=== PATIENT | female | born 1965 | race Caucasian/White ===

== ENCOUNTER 2022-03-06 21:43 | Emergency (ER) | payer MEDICAID ==
[~2022-03-06] VITALS: Ht 160 cm; Wt 72.6 kg
[2022-03-06 21:48] VITALS: BP_SYST 138
--- NOTE | 2022-03-06 22:00 | NUR ---
PT HERE ACCOMPANIED HY HER C/O DYSURIA SINCE 1900. PT STATED THAT SHE HAS BLOOD IN HERE URINE WELL. STATES LOWER ABD PRESSURE EVERYTIME SHE URUNATE, +URINARY FREQUENCY, DENIES N/V/D, DENIES FEVER. PMh:DM,HTN,HYPERLIPIDEMIA PT AAOX4, NO SOB NOTED AND NAD, PENDING MD WALTERS.
--- NOTE | 2022-03-06 22:13 | NUR ---
PT ASSISTED TO SHREYAS, REPORT GIVEN TO JUAN JESSICA
[2022-03-06 22:56] LABS: BILIRUBIN,URINE NEGATIVE (NEGATIVE); BLOOD, URINE 3+ (NEGATIVE); CLARITY/URINE CLEAR (CLEAR); COLOR,URINE ORANGE (YELLOW); GLUCOSE,URINE NEGATIVE (NEGATIVE); KETONES,URINE NEGATIVE (NEGATIVE); LEUKOCYTE ESTERASE ,URINE 2+ (NEGATIVE); NITRITE, URINE POSITIVE (NEGATIVE); PH,URINE 7.5 (5.0-8.0); PROTEIN URINE 2+ (NEGATIVE)
[2022-03-06 23:33] LABS: BACTERIA,URINE MODERATE /HPF (None Seen); RBC,URINE 20-50 /HPF (0-3)
[2022-03-06 23:34] LABS: MUCUS,URINE 1+ /LPF (None Seen)
[2022-03-07] MEDS ORDERED: PHEN-727 PO (01:06)
[2022-03-07] MEDS ORDERED: CIPR500T5 PO (01:06)
[2022-03-07] MEDS ORDERED: PHENAZOPYRIDINE HCL 100 MG TABLET ONE (01:12)
[2022-03-07] MEDS ORDERED: CIPROFLOXACIN HCL 500 MG TABLET ONE (01:12)
--- NOTE | 2022-03-07 01:13 | NUR ---
Patient given written and verbal discharge instructions and verbalizes understanding. ER MD discussed with patient the results and treatment provided. Patient in stable condition. ID arm band removed. IV catheter removed intact and dressing applied, no active bleeding. Rx of PYRIDIUM, CIPRO given. Patient educated on pain management and to follow up with PMD. Pain Scale . Opportunity for questions provided and answered. Medication side effect fact sheet provided.
[2022-03-07] MEDS ORDERED: CIPROFLOXACIN HCL 500 MG TABLET PO ONE (01:15)
[2022-03-07] MEDS ORDERED: PHENAZOPYRIDINE HCL 100 MG TABLET PO ONE (01:15)
== END 2022-03-07 01:13 | disposition home or self-care (01) ==
LOC: SED 21:43
DX: N39.0 Urinary tract infection, site not specified (principal); R35.0 Frequency of micturition; R39.15 Urgency of urination; R30.0 Dysuria; Z79.899 Other long term (current) drug therapy
CPT/HCPCS: 81000; 87086; 99283

== ENCOUNTER 2023-06-07 17:55 | Emergency (ER) | payer MEDICAID ==
[~2023-06-07] VITALS: Ht 160 cm; Wt 66.2 kg
[~2023-06-07 17:55] MED LIST: CIPR500T5 PO; PHEN-727 PO
[2023-06-07 18:06] VITALS: BP_SYST 152; PULSE 95; RESP 19; TEMP 97; O2SAT 95
[2023-06-07] MEDS ORDERED: predniSONE 20 MG TABLET PO ONE (18:30)
[2023-06-07] MEDS ORDERED: ALBUTEROL SULFATE 0.083% 2.5 MG/3 ML VIAL.NEB INH ONE (18:30)
[2023-06-07 18:57] LABS: BILIRUBIN,URINE NEGATIVE (NEGATIVE); BLOOD, URINE NEGATIVE (NEGATIVE); CLARITY/URINE CLEAR (CLEAR); COLOR,URINE YELLOW (YELLOW); GLUCOSE,URINE NEGATIVE (NEGATIVE); KETONES,URINE NEGATIVE (NEGATIVE); LEUKOCYTE ESTERASE ,URINE TRACE (NEGATIVE); NITRITE, URINE NEGATIVE (NEGATIVE); PROTEIN URINE NEGATIVE (NEGATIVE); UROBILINOGEN,URINE 0.2 (0.2-1.0)
[2023-06-07 19:04] LABS: BACTERIA,URINE RARE /HPF (None Seen); MUCUS,URINE None Seen /LPF (None Seen); RBC,URINE NONE SEEN /HPF (0-3)
[2023-06-07] MEDS ORDERED: DOXY100C PO (19:28)
[2023-06-07] MEDS ORDERED: PRED20TA PO (19:28)
[2023-06-07] MEDS ORDERED: FLUC150T PO (19:28)
[2023-06-07] MEDS ORDERED: ALBMDI INH (19:28)
[2023-06-07 20:02] LABS: BASOPHILS # (AUTO) 0.1 K/uL (0.0-0.2); BASOPHILS % (AUTO) 0.5 % (0.0-2.0); EOSINOPHILS # (AUTO) 0.5 K/uL (0.0-0.4); EOSINOPHILS % (AUTO) 4.8 % (0.0-4.0); HEMATOCRIT 40.3 % (36-48); HEMOGLOBIN 13.6 g/dL (12.0-16.0); LYMPHOCYTES # (AUTO) 3.2 K/uL (1.0-5.5); MEAN CORPUSCULAR HEMOGLOBIN 30 pg (27-31); MEAN CORPUSCULAR HGB CONC 34 % (32-36); MEAN CORPUSCULAR VOLUME 89 fL (79.0-98.0); MONOCYTES # (AUTO) 0.6 K/uL (0.0-1.0); NEUTROPHILS % (AUTO) 61.7 % (40.0-70.0); PLATELET COUNT (AUTO) 413 K/uL (130-430); RED BLOOD CELL COUNT(AUTO) 4.56 MIL/uL (4.2-6.2); WHITE BLOOD COUNT (AUTO) 11.4 K/uL (4.8-10.8)
[2023-06-07 20:11] LABS: CALCIUM 9.3 mg/dL (8.4-11.0); CREATININE 0.85 mg/dL (0.55-1.30)
[2023-06-07 20:49] VITALS: BP_SYST 152; PULSE 95; RESP 19; TEMP 97; O2SAT 96
== END 2023-06-07 20:49 | disposition home or self-care (01) ==
LOC: SED 17:55
DX: R05.9 Cough, unspecified (principal); B37.31 Acute candidiasis of vulva and vagina; R06.2 Wheezing; Z79.899 Other long term (current) drug therapy
CPT/HCPCS: 99284; 71046; 80048; 81001; 85025; 36415; 94640; 81000; 81015; J7512

== ENCOUNTER 2023-07-07 21:23 | Emergency (ER) | payer MEDICAID ==
[~2023-07-07] VITALS: Ht 160 cm; Wt 66.2 kg
[~2023-07-07 21:23] MED LIST changes: +ALBMDI INH; +DOXY100C PO; +FLUC150T PO; +PRED20TA PO
[2023-07-07 21:36] VITALS: BP_SYST 141; PULSE 90; RESP 17; TEMP 97.8; O2SAT 97
[2023-07-07 22:14] LABS: COVID19 ANTIGEN SOFIA FIA NEGATIVE (NEGATIVE)
[2023-07-07 22:16] LABS: INFLUENZA TYPE A Negative (NEGATIVE); INFLUENZA TYPE B NEGATIVE (NEGATIVE)
[2023-07-07] MEDS ORDERED: ALBMDI INH (23:02)
[2023-07-07] MEDS ORDERED: PRED20TA PO (23:02)
[2023-07-07] MEDS ORDERED: AZIT-93 PO (23:02)
== END 2023-07-07 23:29 | disposition home or self-care (01) ==
LOC: SED 21:23
DX: J20.9 Acute bronchitis, unspecified (principal); R05.9 Cough, unspecified; Z79.899 Other long term (current) drug therapy; Z20.822 Contact with and (suspected) exposure to COVID-19
CPT/HCPCS: 36415; 71046; 99284